=== PATIENT | male | born 1955 | race Caucasian/White ===

== ENCOUNTER 2019-10-04 13:37 | Day surgery (SDC) | payer BC ==
[2019-09-29 15:28] LABS: BASOPHILS # (AUTO) 0.1 X10'3 (0-0.2); BASOPHILS % (AUTO) 0.8 % (0-1); EOSINOPHILS # (AUTO) 0.2 X10'3 (0-0.9); EOSINOPHILS % (AUTO) 1.7 % (0-6); HEMATOCRIT 41.7 % (42.0-52.0); HEMOGLOBIN 14.3 g/dl (14.0-17.9); MEAN CORPUSCULAR HEMOGLOBIN 31.9 PG (27.0-31.0); MEAN CORPUSCULAR HGB CONC 34.3 g/dL (33.0-36.5); MEAN PLATELET VOLUME 9.7 FL (7.4-10.4); MONOCYTES # (AUTO) 0.6 X10'3 (0-0.9); MONOCYTES % (AUTO) 5.2 % (2-12); NEUTROPHILS # (AUTO) 7.6 X10'3 (1.8-7.7); NEUTROPHILS % (AUTO) 66.3 % (42-75); PLATELET COUNT 190 X10'3 (140-440); RED BLOOD COUNT 4.49 X10'6 (4.70-6.10); WHITE BLOOD COUNT 11.4 X10'3 (4.5-11.0)
[2019-09-29 15:40] LABS: ALBUMIN 3.4 G/DL (3.4-5.0); ANION GAP 3 (8-16); BLOOD UREA NITROGEN 21 MG/DL (7-18); BUN/CREATININE RATIO 18.4 (5.4-32.0); CALCIUM 9.2 MG/DL (8.5-10.1); CHLORIDE 106 MMOL/L (99-107); CREATININE 1.14 MG/DL (0.60-1.10); GLUCOSE 188 MG/DL (70-104); POTASSIUM 3.7 MMOL/L (3.5-5.1); SODIUM 141 MMOL/L (135-145); TOTAL CARBON DIOXIDE 31.6 MMOL/L (24-32); eGFR 65 ML/MIN
[2019-09-29 15:41] LABS: PARTIAL THROMBOPLASTIN TIME 25 SECONDS (22-32)
[2019-10-04] VITALS (7 sets, daily range): BP systolic 144–169; BP diastolic 87–101
[~2019-10-04] VITALS: Ht 172.7 cm; Wt 99.6 kg
[2019-10-04] MEDS ORDERED: normal saline 1,000 ML IV SCH (14:35)
[2019-10-04] MEDS ORDERED: LIDOcaine/PRILOcaine 5gm cream TP ONE (14:35)
[2019-10-04] MEDS ORDERED: LORazepam 0.5 MG tablet PO PRN (14:35)
[2019-10-04] MEDS ORDERED: diphenhydrAMINE 25mg capsule PO PRN (14:35)
[2019-10-04] MEDS ORDERED: ASPI-1264 PO (14:39)
[2019-10-04] MEDS ORDERED: LISI-604 PO (14:39)
[2019-10-04] MEDS ORDERED: IBUP-2417 PO (14:39)
[2019-10-04] MEDS ORDERED: DIAZ5TAB4 PO (14:39)
[2019-10-04] MEDS ORDERED: HYDR-4353 PO (14:39)
[2019-10-04] MEDS ORDERED: NEBI5TAB10 PO (14:39)
[2019-10-04] MEDS ORDERED: NITR0.4T SL (14:39)
[2019-10-04] MEDS ORDERED: pneumococcal 23-VAL P-sac vacc 25 mcg/0.5ml vial IMVAC ONE (15:55)
[2019-10-04] MEDS ORDERED: midazolam 2 mg/2 ml injection ONE ×2 (16:28→17:37)
[2019-10-04] MEDS ORDERED: fentaNYL/PF 50MCG/1 ML 2ML syringe ONE (16:28)
[2019-10-04] MEDS ORDERED: LIDOcaine 1% (10mg/ml)w/preservative injection 20ml MDV ONE (16:30)
[2019-10-04] MEDS ORDERED: iohexol 350MG/ML 100ml bottle IV ONE (16:30)
[2019-10-04] MEDS ORDERED: nitroGLYCERIN-Tridil 50MG/D5W 250 ML IV ONE (16:30)
[2019-10-04] MEDS ORDERED: verapamil 2.5 mg/ml inj IV ONE (16:30)
[2019-10-04] MEDS ORDERED: heparin 1,000 UNITS/NS 500ml 500 ML ONE ×2 (16:30→16:32)
[2019-10-04] MEDS ORDERED: heparin 1,000unit/ml 10ml vial 10 ML ONE (16:30)
[2019-10-04] MEDS ORDERED: normal saline 1000ml 1,000 ML IV SCH (19:05)
[2019-10-04] MEDS ORDERED: ondansetron/PF 4mg/2ml inj IV PRN (19:05)
[2019-10-04] MEDS ORDERED: HYDROcodone/acetaminophen 5mg/325mg tablet PO PRN (19:05)
[2019-10-04] MEDS ORDERED: OXAZEpam 15mg capsule PO PRN (19:05)
[2019-10-04] MEDS ORDERED: HYDROcodone/acetaminophen 10/325mg tab PO PRN (19:05)
[2019-10-04] MEDS ORDERED: proCHLORperazine 10 MG/2 ml inj IV PRN (19:05)
== END 2019-10-04 20:05 | disposition home or self-care (01) ==
LOC: SSTAY O 13:37
PROVIDERS: ATTEND Internal Medicine Interventional Cardiology
DX: R94.39 Abnormal result of other cardiovascular function study (principal); I25.10 Atherosclerotic heart disease of native coronary artery without angina pectoris; E78.5 Hyperlipidemia, unspecified; I10 Essential (primary) hypertension; F17.210 Nicotine dependence, cigarettes, uncomplicated; Z79.899 Other long term (current) drug therapy; Z79.82 Long term (current) use of aspirin
CPT/HCPCS: 36415; 80048; 85025; 85610; 85730; 93458; 99152; 99153; C1769; C1894; J1644; J2001; J2250; J3010; J7030; Q0163; Q9967; 93005; A4620; A6258; J3490

== ENCOUNTER 2025-05-10 12:21 | Outpatient (CLI) | payer BC, OTHER ==
[~2025-05-10 12:21] MED LIST: ASPI-1264 PO; DIAZ5TAB4 PO; HYDR-4353 PO; IBUP-2417 PO; LISI5TAB22 PO; NEBI5TAB9 PO; NITR0.4T SL
--- NOTE | 2025-05-10 14:59 | RADIOLOGY REPORT ---
PROCEDURE: MR MRI C SPINE Indication: RADICULOPATHY, LUMBAR REGION/ CERVICALGIA COMPARISON: None TECHNIQUE: Multiplanar multisequence images of the the cervical spine are obtained. FINDINGS: Cervical vertebral body heights are maintained. There is moderate multilevel disc space narrowing and desiccation. No abnormal marrow edema. Atlantooccipital, atlantoaxial articulations intact. C2-3: Small disc osteophyte complex. No spinal canal stenosis. No neural foraminal stenosis. C3-4: Small disc osteophyte complex narrowing the ventral CSF space. Dorsal CSF space preserved. Th ecal sac measures 10 mm AP. No spinal canal stenosis. Moderate left and [id number] right neural foraminal stenosis secondary to facet and uncovertebral hypertrophy. C4-5: Disc osteophyte complex narrowing the ventral and dorsal CSF spaces. Thecal sac measures 8 mm AP. Xubv-gx-nektaaao spinal canal stenosis. Moderate to severe bilateral neural foraminal stenosis secondary to facet and uncovertebral hypertrophy. C5-6: Disc osteophyte complex effacing the ventral and dorsal CSF spaces. Thecal sac measures 7 mm A P. Moderate spinal canal stenosis. Severe bilateral neural foraminal stenosis secondary to facet and uncovertebral hypertrophy. C6-7: Disc osteophyte complex narrowing the ventral and dorsal CSF spaces. Thecal sac measures 8 mm A P. Qvvo-lt-sfcopbcr spinal canal stenosis. Moderate to severe bilateral neural foraminal stenosis. C7-T1: No spinal canal stenosis. Vvgl-he-qbctxzeo left and mild right neural foraminal stenosis. IMPRESSION: Moderate cervical degenerative disc disease. Moderate spinal canal stenosis at C5-6. Yhky-ji-mgtewddc spinal canal stenosis at C4-5, C6-7. Multilevel moderate to severe neural foraminal stenosis as described above.
--- NOTE | 2025-05-10 18:04 | RADIOLOGY REPORT ---
PROCEDURE: MR MRI LUMBAR SPINE INDICATION: RADICULOPATHY, LUMBAR REGION/ CERVICALGIA Exam Date: 05/10/2025 01:33 PM COMPARISON: None TECHNIQUE: MRI lumbar spine without intravenous contrast. FINDINGS: The lumbar alignment is intact. There are degenerative endplate changes including modic endplate ch anges with anterior and lateral osteophytes throughout the lumbar spine. The visualized distal spinal cord and conus medullaris are within normal limits. The conus medullaris appears to terminate withi n normal limits. The visualized retroperitoneal and paraspinal soft tissues are unremarkable. The following axial levels are detailed below: T12-L1: Unremarkable. L1-L2: There is a mild circumferential disc bulge. No significant central canal or neuroforaminal s tenosis. L2-L3: Unremarkable. L3-L4: There is a moderate circumferential disc bulge complicated by facet arthropathy associated w ith mild to moderate bilateral neuroforaminal stenosis. No significant central canal stenosis. L4-L5: There is a moderate circumferential disc bulge right paracentral component complicated by fa cet arthropathy associated with right lateral recess stenosis as well as moderate to severe bilateral neuroforaminal stenosis. No significant central canal stenosis. L5-S1: There is a moderate circumferential disc bulge complicated by facet arthropathy associated wi th mild to moderate bilateral neuroforaminal stenosis. No significant central canal stenosis. IMPRESSION: 1. Multilevel degenerative disease worst at L4-5 where a right paracentral disc protrusion results in right lateral recess stenosis with impingement on the exiting right L5 nerve root as well as contrib utes to moderate severe bilateral neural foraminal stenosis. Other neural foraminal stenosis as above . HS:Y
== END 2025-05-10 23:59 | disposition home or self-care (01) ==
LOC: MRI 12:21
PROVIDERS: ATTEND Family Medicine Sports Medicine
DX: M51.17 Intervertebral disc disorders with radiculopathy, lumbosacral region (principal); M54.2 Cervicalgia; M50.323 Other cervical disc degeneration at C6-C7 level; M77.9 Enthesopathy, unspecified; M53.3 Sacrococcygeal disorders, not elsewhere classified; M47.27 Other spondylosis with radiculopathy, lumbosacral region; M48.02 Spinal stenosis, cervical region
CPT/HCPCS: 72141; 72148